=== PATIENT | female | born 1980 | race Caucasian/White ===

== ENCOUNTER → 2016-04-03 | Outpatient (CLI) | payer OTHER ==
[~2016-04-03] MED LIST: COLACE100 MG PO; HYDROCODONE-AP1 EAC6 PO; JUNEL FE 1-201 EACH PO; NEURONTIN300 MG PO; UNICOMPLEX M TA1 TA1 PO; XANAX 0.25 MG0.25 MG PO
== END ==
LOC: CAT 08:31
DX: K42.9 Umbilical hernia without obstruction or gangrene (principal); N20.0 Calculus of kidney